=== PATIENT | male | born 1965 | race Caucasian/White ===

== ENCOUNTER 2018-09-22 08:37 | Emergency (ER) | payer MEDICAID ==
[~2018-09-22] VITALS: Ht 180.3 cm; Wt 87.7 kg
[2018-09-22 08:37] VITALS: BP 154/69
--- NOTE | 2018-09-22 08:44 | NUR ---
PT TO ER BED 6
--- NOTE | 2018-09-22 08:55 | NUR ---
PT. ARRIVED TO ED DUE TO RL BACK PAIN X THIS MORNING 0800. 9/10 SHARP INTERMITTENT PAIN. DENIES ANY N/V/D. DENIES ANY ABD PAIN.ABD ROUND AND SOFT AND NON TENDER TO PALPATION ACTIVE X 4 QUADS. PT REPORTS HISTORY OF KIDNEY STONES. PT DENIES ANY CHILLS OR FEVERS. PER PT " I TOOK AN IBUPROFEN 600MG BEFORE CHECKING IN AND IT HELPED". SAFETY PRECAUTIONS IMPLEMENTED. WILL CONTINUE TO MONITOR. ER MD MADE AWARE.
[2018-09-22] MEDS ORDERED: NACL 0.9% 1,000 ML IV ONE (09:05)
[2018-09-22] MEDS ORDERED: KETOROLAC 30 MG/ML VIAL IVP ONE (09:05)
--- NOTE | 2018-09-22 09:05 | NUR ---
PT. TAKEN TO CT SCAN VIA WHEELCHAIR BY [email or web address].
[2018-09-22 09:21] LABS: BASOPHILS # (AUTO) 0.1 K/uL (0.00-0.22); BASOPHILS % (AUTO) 0.7 % (0.0-2.0); EOSINOPHILS # (AUTO) 0.1 K/uL (0-0.4); EOSINOPHILS % (AUTO) 0.7 % (0.0-4.0); HEMATOCRIT 45.4 % (36-52); HEMOGLOBIN 14.4 g/dL (12.0-18.0); LYMPHOCYTES # (AUTO) 1.8 K/uL (2.0-11.5); LYMPHOCYTES % (AUTO) 21.9 % (20.5-51.1); MEAN CORPUSCULAR HEMOGLOBIN 26 pg (27-31); MEAN CORPUSCULAR HGB CONC 32 g/dL (33-37); MEAN CORPUSCULAR VOLUME 82.6 fL (80-94); MONOCYTES # (AUTO) 0.4 K/uL (0.8-1.0); MONOCYTES % (AUTO) 5.3 % (1.7-9.3); NEUTROPHILS # (AUTO) 5.8 K/uL (1.8-7.7); NEUTROPHILS % (AUTO) 71.4 % (42.2-75.2); PLATELET COUNT (AUTO) 226 K/uL (140-450); WHITE BLOOD COUNT (AUTO) 8.1 K/uL (4.8-10.8)
[2018-09-22 09:26] LABS: APPEARANCE,URINE HAZY (CLEAR); BILIRUBIN,URINE NEGATIVE (NEGATIVE); BLOOD, URINE 3+ (NEGATIVE); COLOR,URINE YELLOW (YELLOW); LEUKOCYTE ESTERASE ,URINE NEGATIVE (NEGATIVE); NITRITE, URINE NEGATIVE (NEGATIVE); PH,URINE 5.5 (5.0-9.0); UGLUCOSE NEGATIVE (NEGATIVE)
[2018-09-22 09:38] LABS: ALBUMIN 4.1 g/dL (3.4-5.0); ANION GAP 12.4 (8-16); CARBON DIOXIDE 27.6 mmol/L (21-32); CREATININE 1.2 mg/dL (0.7-1.3); TOTAL BILIRUBIN 0.5 mg/dL (0.0-1.0)
[2018-09-22 09:41] LABS: RBC,URINE TOO NUMEROUS TO COUN /HPF (0-5)
[2018-09-22 09:42] LABS: WBC,URINE 0-5 (RARE) /HPF (0-5)
--- NOTE | 2018-09-22 10:07 | NUR ---
PT. RESTING COMFORTABLY IN BED, RR EVEN AND UNLABORED. VSS. FAMILY MEMBER AT BEDSIDE. WILL CONTINUE TO MONITOR.
[2018-09-22 10:34] VITALS: BP 125/74
--- NOTE | 2018-09-22 10:34 | NUR ---
Patient discharged with v/s stable. Written and verbal after care instructions given and explained. Patient alert, oriented and verbalized understanding of instructions. Ambulatory with steady gait. All questions addressed prior to discharge. ID band removed. Patient advised to follow up with PMD. Rx of MOTRIN 800MG, FLOMAX 0.4MG, NORCO 5/325MG given. Patient educated on indication of medication including possible reaction and side effects. Opportunity to ask questions provided and answered.
== END 2018-09-22 10:34 | disposition home or self-care (01) ==
LOC: MED 08:37
DX: N20.0 Calculus of kidney (principal); Z90.49 Acquired absence of other specified parts of digestive tract
CPT/HCPCS: 36415; 74176; 80053; 81001; 83690; 85025; 96374; 99284; J1885; J7030

== ENCOUNTER 2018-10-10 04:47 | Emergency (ER) | payer MEDICAID ==
[~2018-10-10] VITALS: Ht 167.6 cm; Wt 86.2 kg
[2018-10-10 04:51] VITALS: BP 129/77
--- NOTE | 2018-10-10 04:57 | NUR ---
PT AMBULATED TO BED 7 WITH VSS. PROVIDING URINE.
--- NOTE | 2018-10-10 05:01 | NUR ---
PT TO ED WITH C/O SUPRAPUBIC PAIN AND HEMATURIA X 8 HRS. PT DENIES N/V/D. +HEMATURIA. DENIES PAIN UPON PALPATION. NO BLADDER DISTENTION NOTED. PT PLACED INTO BED, PENDING MD LUJAN. PMH--DENIES NKDA.
[2018-10-10] MEDS ORDERED: NACL 0.9% 500 ML IV ONE (05:02)
[2018-10-10] MEDS ORDERED: ONDANSETRON 4 MG/2 ML VIAL IVP ONE (05:05)
[2018-10-10] MEDS ORDERED: KETOROLAC 30 MG/ML VIAL IVP ONE (05:05)
[2018-10-10 05:28] LABS: CARBON DIOXIDE 24.4 mmol/L (21-32); CREATININE 1.1 mg/dL (0.7-1.3); POTASSIUM 3.4 mmol/L (3.5-5.1)
[2018-10-10 05:32] LABS: ALBUMIN 3.7 g/dL (3.4-5.0); TOTAL BILIRUBIN 0.5 mg/dL (0.0-1.0)
[2018-10-10 05:48] LABS: PROTHROMBIN TIME 10.7 secs (10.8-13.4)
[2018-10-10 06:15] VITALS: BP 122/65
--- NOTE | 2018-10-10 06:15 | NUR ---
Patient discharged with v/s stable. Written and verbal after care instructions given and explained. Patient alert, oriented and verbalized understanding of instructions. Ambulatory with steady gait. All questions addressed prior to discharge. ID band removed. Patient advised to follow up with PMD. Rx of TRAMADOL, MOTRIN given. Patient educated on indication of medication including possible reaction and side effects. Opportunity to ask questions provided and answered.
[2018-10-10 06:26] LABS: BASOPHILS # (AUTO) 0.1 K/uL (0.00-0.22); BASOPHILS % (AUTO) 1.2 % (0.0-2.0); EOSINOPHILS # (AUTO) 0.2 K/uL (0-0.4); EOSINOPHILS % (AUTO) 3.3 % (0.0-4.0); HEMATOCRIT 43.5 % (36-52); HEMOGLOBIN 14.2 g/dL (12.0-18.0); LYMPHOCYTES # (AUTO) 2.1 K/uL (2.0-11.5); LYMPHOCYTES % (AUTO) 30.9 % (20.5-51.1); MEAN CORPUSCULAR HEMOGLOBIN 27 pg (27-31); MEAN CORPUSCULAR HGB CONC 33 g/dL (33-37); MEAN CORPUSCULAR VOLUME 81.3 fL (80-94); MONOCYTES # (AUTO) 0.6 K/uL (0.8-1.0); MONOCYTES % (AUTO) 8.4 % (1.7-9.3); NEUTROPHILS # (AUTO) 3.8 K/uL (1.8-7.7); NEUTROPHILS % (AUTO) 56.2 % (42.2-75.2); PLATELET COUNT (AUTO) 245 K/uL (140-450); RED BLOOD CELL COUNT(AUTO) 5.35 MIL/uL (4.20-6.10); RED CELL DISTRIBUTION WIDTH 14.4 % (11.6-13.7); WHITE BLOOD COUNT (AUTO) 6.7 K/uL (4.8-10.8)
== END 2018-10-10 06:15 | disposition home or self-care (01) ==
LOC: MED 04:47
DX: N20.2 Calculus of kidney with calculus of ureter (principal)
CPT/HCPCS: 36415; 74176; 80053; 85025; 85610; 85730; 87086; 96374; 96375; 99284; J1885; J2405; J7030